=== PATIENT | female | born 1950 | race Caucasian/White ===

== ENCOUNTER 2016-08-12 12:46 | Observation (INO) | payer OTHER ==
[~2016-08-12] VITALS: Ht 175.3 cm; Wt 98.0 kg
[2016-08-12 13:33] LABS: HEMOGLOBIN 14.1 gm/dl (12.3-15.3); RED BLOOD COUNT 4.71 M/UL (4.00-5.10); WHITE BLOOD COUNT 8.3 K/UL (4.5-11.0)
[2016-08-12 13:57] LABS: BUN/CREATININE RATIO 17 (0-10)
== END 2016-08-14 20:05 | disposition home or self-care (01) ==
LOC: ER1 12:46 → ZEROF 19:15 → M/S 19:15
PROVIDERS: Emergency Medicine; ADMIT Family Medicine
DX: R55 Syncope and collapse (principal); R00.1 Bradycardia, unspecified; Z98.51 Tubal ligation status
CPT/HCPCS: ECHO; 36415; 70450; 71010; 80053; 80061; 81001; 82550; 82553; 83036; 83874; 83880; 84439; 84443; 84484; 85025; 93005; 93306; 96360; 96361; 99285; G0378; J7030; J7050; Q9963

== ENCOUNTER → 2016-08-21 | Outpatient (CLI) | payer OTHER | LOC: KOH-I 12:37 | DX: M25.511 Pain in right shoulder (principal); M25.512 Pain in left shoulder | CPT/HCPCS: 73030 ==

== ENCOUNTER → 2016-08-24 | Outpatient (CLI) | payer OTHER | LOC: KOH-I 12:16 | DX: M25.512 Pain in left shoulder (principal) | CPT/HCPCS: 73030 ==